=== PATIENT | male | born 1955 | race Caucasian/White ===

== ENCOUNTER 2016-06-14 08:18 | Outpatient (CLI) | payer OTHER ==
[2016-06-14 08:48] LABS: #Basophils 0.1 thou/uL (0.0-0.2); #Eosinphils 0.2 thou/uL (0.0-0.7); #Lymphocytes 1.7 thou/uL (1.20-3.40); #Monocytes 0.7 thou/uL (0.11-0.59); #Neutrophils 3.4 thou/uL (1.40-6.50); %Basophils 1.7 % (0.0-1.0); %Eosinophils 2.6 % (0.0-10.0); %Lymphocytes 28.5 % (21.0-51.0); %Monocytes 10.8 % (0.0-10.0); %Neutrophils 56.3 % (42.0-75.0); Hemoglobin 13.7 g/dL (14.0-18.0); Mean Corpuscular HGB CONC 33.7 g/dL (32.0-36.0); Mean Corpuscular Hemoglobin 30.7 pg (27.0-31.0); Mean Corpuscular Volume 91.2 fl (80.0-94.0); Mean Platelet Volume 5.7 fL (7.4-10.4); Platelet Count 217 thou/uL (130-400); RBC Distribution Width 12.3 % (11.5-14.5); Red Blood Cell (RBC) Count 4.48 mill/uL (4.70-6.10); White Blood Cell (WBC) Count 6.1 thou/uL (4.8-10.8)
[2016-06-14 09:25] LABS: ALT (SGPT) 22 U/L (0-55); AST (SGOT) 19 U/L (5-34); Albumin 4.1 g/dL (3.5-5.0); Alkaline Phosphatase 61 U/L (40-150); Anion Gap 15 mmol/L (10-20); BUN (Urea Nitrogen) 16 mg/dL (8.4-25.7); Bilirubin, Direct 0.1 mg/dL (0.1-0.3); Bilirubin, Total 0.5 mg/dL (0.2-1.2); Calc. Creatinine Clearance 0 mL/min (70-130); Calcium 8.9 mg/dL (7.8-10.44); Carbon Dioxide 23 mmol/L (22-29); Cardiac Risk 4.7 (Less than 4.5); Chloride 106 mmol/L (98-107); Cholesterol 155 mg/dL (< 200 Desired); Estimated GFR-MDRD 89; Glucose 123 mg/dL (70-105); HDL Cholesterol 33 mg/dL (>60 Neg Risk); LDL Cholesterol, Calculated 64 mg/dL; Protein, Total 6.2 g/dL (6.0-8.3); Sodium 140 mmol/L (136-145); Triglycerides 288 mg/dL (Less than 150)
[2016-06-14 10:02] LABS: Hemoglobin A1c 5.3 % (4.0-6.0)
== END 2016-06-14 08:19 | disposition home or self-care (01) ==
LOC: MADLABBHPM 08:18
PROVIDERS: ATTEND Family Medicine
DX: I25.10 Atherosclerotic heart disease of native coronary artery without angina pectoris (principal)
CPT/HCPCS: 36415; 80048; 80061; 80076; 83036; 85025

== ENCOUNTER 2017-03-05 08:16 | Outpatient (CLI) | payer BC, OTHER ==
[2017-03-05 09:22] LABS: #Basophils 0.1 thou/uL (0.0-0.2); #Eosinphils 0.2 thou/uL (0.0-0.7); #Neutrophils 8.1 thou/uL (1.40-6.50); %Basophils 1.1 % (0.0-1.0); %Eosinophils 2.1 % (0.0-10.0); %Lymphocytes 17.4 % (21.0-51.0); %Monocytes 8.5 % (0.0-10.0); Hemoglobin 13.5 g/dL (14.0-18.0); Mean Corpuscular HGB CONC 33.1 g/dL (32.0-36.0); Mean Corpuscular Hemoglobin 30.5 pg (27.0-31.0); Mean Platelet Volume 5.2 fL (7.4-10.4); Platelet Count 245 thou/uL (130-400); RBC Distribution Width 12.3 % (11.5-14.5); Red Blood Cell (RBC) Count 4.43 mill/uL (4.70-6.10); White Blood Cell (WBC) Count 11.4 thou/uL (4.8-10.8)
[2017-03-05 09:33] LABS: Hemoglobin A1c 5.6 % (4.0-6.0)
[2017-03-05 10:07] LABS: ALT (SGPT) 21 U/L (8-55); AST (SGOT) 15 U/L (5-34); Alkaline Phosphatase 70 U/L (40-150); Anion Gap 13 mmol/L (10-20); BUN (Urea Nitrogen) 14 mg/dL (8.4-25.7); Bilirubin, Total 0.3 mg/dL (0.2-1.2); Calc. Creatinine Clearance 0 mL/min (70-130); Calcium 9.3 mg/dL (7.8-10.44); Carbon Dioxide 22 mmol/L (22-29); Cardiac Risk 4.4 (Less than 4.5); Chloride 109 mmol/L (98-107); Cholesterol 153 mg/dl (< 200 Desired); Estimated GFR-MDRD Greater than 90; Globulin 2.6 g/dL (2.4-3.5); Glucose 116 mg/dL (70-105); HDL Cholesterol 35 mg/dL (>60 Neg Risk); LDL Cholesterol, Calculated 76 mg/dL; Potassium 4.3 mmol/L (3.5-5.1); Protein, Total 6.6 g/dL (6.0-8.3); Sodium 140 mmol/L (136-145); Triglycerides 208 mg/dL (Less than 150)
--- NOTE | 2017-03-05 10:34 | RAD ---
FRONTAL AND LATERAL IMAGING OF CHEST: Date: 03/05/17 COMPARISON: 05/23/09. HISTORY: Chest pain. FINDINGS: No pneumothorax, pleural fluid, focal consolidation, or alveolar edema. Heart and mediastinal contou rs are grossly unchanged. There is degenerative anterior osteophyte formation within the thoracic sp ine. IMPRESSION: No radiographic evidence of acute cardiopulmonary disease. POS: [facility]
== END 2017-03-05 08:17 | disposition home or self-care (01) ==
LOC: MADLABBHPM 08:16
PROVIDERS: ATTEND Family Medicine
DX: E78.5 Hyperlipidemia, unspecified (principal); I10 Essential (primary) hypertension; R73.01 Impaired fasting glucose
CPT/HCPCS: 36415; 71020; 80053; 80061; 83036; 84443; 85025

== ENCOUNTER 2018-01-17 19:44 | Emergency (ER) | payer BC ==
[2018-01-17] MEDS ORDERED: Tetracaine 0.5% OPHTH SOLN/PF 4 ML BOT ONE (19:59)
[2018-01-17] MEDS ORDERED: Erythromycin Base 0.5% Ophth Oint 3.5 gm Tube ONE (20:28)
[2018-01-17] MEDS ORDERED: Ibuprofen 800 MG TAB ONE (20:28)
== END 2018-01-17 20:39 | disposition home or self-care (01) ==
LOC: MADERS 19:44
DX: S05.02XA Injury of conjunctiva and corneal abrasion without foreign body, left eye, initial encounter (principal); I10 Essential (primary) hypertension; E78.5 Hyperlipidemia, unspecified; Z79.899 Other long term (current) drug therapy; X58.XXXA Exposure to other specified factors, initial encounter
CPT/HCPCS: 99283

== ENCOUNTER 2019-08-06 09:43 | Outpatient (CLI) | payer BC, OTHER ==
--- NOTE | 2019-08-06 10:12 | RAD ---
EXAM: XR Lumbar Spine 2 Or 3 View PROVIDED CLINICAL HISTORY: Back pain COMPARISON: None FINDINGS: 5 lumbar vertebral bodies are seen with partial lumbarization of the S1 segment. There is grade 1 ant erolisthesis of L4 on L5. There is grade 1 anterolisthesis of L5 on S1 with L5 pars defects suspected. Vertebral body heights appear preserved. Disc space narrowing and endplate degenerative ch anges are seen at L4-5. Lower lumbar spine facet arthritis. Sacroiliac degenerative change. Pedicles appear intact. No lytic or blastic lesions are radiographically apparent. IMPRESSION: Lower lumbar disc and facet degenerative change with suspected L5 pars defects.
== END 2019-08-06 09:44 | disposition home or self-care (01) ==
LOC: MADRAD 09:43
PROVIDERS: ATTEND Family Medicine
DX: M54.5 Low back pain (principal); M51.36 Other intervertebral disc degeneration, lumbar region; M47.816 Spondylosis without myelopathy or radiculopathy, lumbar region
CPT/HCPCS: 72100

== ENCOUNTER 2021-02-12 10:19 | Emergency (ER) | payer BC ==
[2021-02-12] MEDS ORDERED: Ibuprofen 800 MG TAB ONE (11:13)
== END 2021-02-12 11:55 | disposition home or self-care (01) ==
LOC: MADERS 10:19
DX: S60.041A Contusion of right ring finger without damage to nail, initial encounter (principal); I10 Essential (primary) hypertension; E78.5 Hyperlipidemia, unspecified; Z79.82 Long term (current) use of aspirin; Z79.899 Other long term (current) drug therapy; W22.8XXA Striking against or struck by other objects, initial encounter

== ENCOUNTER 2023-04-23 12:00 | Outpatient (CLI) | payer BC | END 2023-04-23 12:01 | disposition home or self-care (01) | LOC: MADLAB 12:00 → MADRAD 12:01 | PROVIDERS: ATTEND Internal Medicine | DX: R05.9 Cough, unspecified (principal); M25.78 Osteophyte, vertebrae | CPT/HCPCS: 71046 ==

== ENCOUNTER 2025-04-03 14:18 | Emergency (ER) | payer BC ==
[2025-04-03] MEDS ORDERED: Acetaminophen 500 MG TAB ONE (14:57)
== END 2025-04-03 16:01 | disposition home or self-care (01) ==
LOC: MADERS 14:18
DX: S40.022A Contusion of left upper arm, initial encounter (principal); W20.8XXA Other cause of strike by thrown, projected or falling object, initial encounter
CPT/HCPCS: 90471; 90715